=== PATIENT | male | born 1985 | race Caucasian/White ===

== ENCOUNTER 2024-10-24 12:52 | Emergency (ER) | payer SELFPAY ==
[~2024-10-24] VITALS: Ht 167.6 cm; Wt 78.0 kg
[~2024-10-24 12:52] MED LIST: BACTRIM DS 8001 TA1 PO; FLEXERIL5 MG PO; HYDROCODONE BIT1 T11 PO; LIDEX 0.05% CRE15 GM T; MOTRIN800 MG PO; PREDNISONE50 MG PO; VICO10300 PO; VICODIN 5/500 505 MG PO; VOLTAREN50 M1 PO; ZITHROMAX250 MG PO
== END 2024-10-24 14:28 | disposition home or self-care (01) ==
LOC: ED 12:52
DX: J11.1 Influenza due to unidentified influenza virus with other respiratory manifestations (principal); Z20.822 Contact with and (suspected) exposure to COVID-19; Z88.0 Allergy status to penicillin